=== PATIENT | female | born 1950 | race Caucasian/White ===

== ENCOUNTER 2017-01-01 09:15 | Day surgery (SDC) | payer OTHER ==
[~2017-01-01] VITALS: Ht 165.1 cm; Wt 105.2 kg
[~2017-01-01 09:15] MED LIST: ASPIRIN500 MG PO; CALCIUM 500 MG1 EACH PO; CRANBERRY250 MG PO; FOLIC ACID1 MG PO; LEVOTHYROXINE125 MCG PO; LOSARTAN POTASS50 MG PO; METHOTREXATE2.5 MG PO; PROMETHAZINE HC25 M1 PO; TRAMADOL HCL50 MG PO; VITAMIN D400 UNI1 PO
[2017-01-01] MEDS ORDERED: LASIX20 MG PO (09:34)
== END 2017-01-01 11:10 | disposition home or self-care (01) ==
LOC: PAIN 09:15 → SDC 10:00 → PAIN 11:10
DX: M47.26 Other spondylosis with radiculopathy, lumbar region (principal); M79.7 Fibromyalgia; I10 Essential (primary) hypertension; E03.9 Hypothyroidism, unspecified; Z87.891 Personal history of nicotine dependence; Z79.891 Long term (current) use of opiate analgesic
CPT/HCPCS: J1030; J2250; J2405; J3010; S0020

== ENCOUNTER 2017-01-08 10:17 | Day surgery (SDC) | payer OTHER ==
[~2017-01-08] VITALS: Ht 165.1 cm; Wt 105.2 kg
[~2017-01-08 10:17] MED LIST changes: +LASIX20 MG PO
[2017-01-08] MEDS ORDERED: VITAMIN D31000 UNI2 PO (10:37)
== END 2017-01-08 11:52 | disposition home or self-care (01) ==
LOC: PAIN 10:17 → SDC 11:00 → PAIN 11:52
DX: M47.26 Other spondylosis with radiculopathy, lumbar region (principal); I10 Essential (primary) hypertension; M79.7 Fibromyalgia; Z87.891 Personal history of nicotine dependence; Z79.891 Long term (current) use of opiate analgesic; Z88.0 Allergy status to penicillin; Z86.73 Personal history of transient ischemic attack (TIA), and cerebral infarction without residual deficits
CPT/HCPCS: J1030; J2250; J3010; S0020

== ENCOUNTER 2017-01-24 06:17 | Emergency (ER) | payer OTHER ==
[~2017-01-24] VITALS: Ht 165.1 cm; Wt 100.1 kg
[~2017-01-24 06:17] MED LIST changes: +VITAMIN D31000 UNI2 PO
[2017-01-24] MEDS ORDERED: PERCOCET 5/31 TABLET PO (08:01)
[2017-01-24 09:01] VITALS: BP 164/84
== END 2017-01-24 09:05 | disposition home or self-care (01) ==
LOC: EME → EDBD 06:17 → EME 06:17
DX: S80.02XA Contusion of left knee, initial encounter (principal); M17.12 Unilateral primary osteoarthritis, left knee; F41.9 Anxiety disorder, unspecified; E03.9 Hypothyroidism, unspecified; Z88.0 Allergy status to penicillin; Z88.8 Allergy status to other drugs, medicaments and biological substances; Z87.891 Personal history of nicotine dependence; Z79.82 Long term (current) use of aspirin; I10 Essential (primary) hypertension
CPT/HCPCS: 73564; 99281; 99284

== ENCOUNTER 2017-02-18 09:42 | Day surgery (SDC) | payer OTHER ==
[~2017-02-18] VITALS: Ht 165.1 cm; Wt 104.3 kg
[~2017-02-18 09:42] MED LIST changes: +PERCOCET 5/31 TABLET PO
[2017-02-19] MEDS ORDERED: ACID CONTROL150 MG PO (12:21)
[2017-02-19] MEDS ORDERED: ASPIRIN PO ×2 (12:26)
== END 2017-02-18 11:48 | disposition home or self-care (01) ==
LOC: PAIN 09:42 → SDC 10:30 → PAIN 10:30
DX: M47.816 Spondylosis without myelopathy or radiculopathy, lumbar region (principal); I10 Essential (primary) hypertension; Z87.891 Personal history of nicotine dependence; Z86.73 Personal history of transient ischemic attack (TIA), and cerebral infarction without residual deficits; M19.90 Unspecified osteoarthritis, unspecified site; E03.9 Hypothyroidism, unspecified; Z88.0 Allergy status to penicillin; Z88.1 Allergy status to other antibiotic agents; Z88.5 Allergy status to narcotic agent
CPT/HCPCS: 93005; J1030; J2250; J3010; S0020

== ENCOUNTER 2017-02-25 09:47 | Day surgery (SDC) | payer OTHER ==
[~2017-02-25] VITALS: Ht 165.1 cm; Wt 104.3 kg
[~2017-02-25 09:47] MED LIST changes: +ACID CONTROL150 MG PO; +ASPIRIN PO
== END 2017-02-25 12:05 | disposition home or self-care (01) ==
LOC: PAIN 09:47 → SDC 10:30 → PAIN 10:30
DX: M47.26 Other spondylosis with radiculopathy, lumbar region (principal); M54.5 Low back pain; G89.29 Other chronic pain; M48.061 Spinal stenosis, lumbar region without neurogenic claudication; M79.1 Myalgia; I10 Essential (primary) hypertension; Z87.891 Personal history of nicotine dependence; Z79.891 Long term (current) use of opiate analgesic; Z88.0 Allergy status to penicillin
CPT/HCPCS: J1030; J2250; J3010; S0020

== ENCOUNTER 2017-08-20 21:27 | Emergency (ER) | payer OTHER ==
[~2017-08-20] VITALS: Ht 165.1 cm; Wt 104.8 kg
[2017-08-21 00:26] LABS: HEMATOCRIT 38.1 % (36.0-46.0); HEMOGLOBIN 12.9 G/DL (11.9-15.5); MCH 29.1 PG (29.0-34.0); MCHC 33.9 G/DL (30.0-36.0); PLATELET COUNT 302 K/uL (156-360); RBC DIS.WIDTH-CV 12.5 % (11.8-14.6); RED BLOOD COUNT 4.43 M/uL (3.80-5.20); WHITE BLOOD COUNT 22.4 K/uL (4.1-10.2)
[2017-08-21 00:40] LABS: CHLORIDE 104 mEq/L (99-109); POTASSIUM 3.5 mEq/L (3.7-5.4); SODIUM 139 mEq/L (136-147)
[2017-08-21 00:42] LABS: GLUCOSE 145 mg/dL (70-99)
[2017-08-21 00:45] LABS: CREATININE 0.8 mg/dL (0.6-1.3); GFR ESTIMATE (CALCULATED) > 59 mL/min/
[2017-08-21 00:46] LABS: UREA NITROGEN (BUN) 17 mg/dL (9-23)
[2017-08-21] MEDS ORDERED: ATARAX,VISTARIL50 MG PO (00:48)
[2017-08-21 01:11] VITALS: BP 159/73
[2017-08-22] MEDS ORDERED: ATARAX,VISTARIL25 MG PO (13:49)
[2017-08-22] MEDS ORDERED: CLARITIN10 M3 PO (13:49)
== END 2017-08-21 01:12 | disposition home or self-care (01) ==
LOC: EME 21:27 → EXP 21:27
PROVIDERS: Physician Assistant
DX: L50.9 Urticaria, unspecified (principal); T36.0X5A Adverse effect of penicillins, initial encounter; E03.9 Hypothyroidism, unspecified; G47.30 Sleep apnea, unspecified; M54.9 Dorsalgia, unspecified; G89.29 Other chronic pain; Z79.82 Long term (current) use of aspirin; Z79.891 Long term (current) use of opiate analgesic; Z87.891 Personal history of nicotine dependence; Z90.49 Acquired absence of other specified parts of digestive tract; Z88.5 Allergy status to narcotic agent; Z88.1 Allergy status to other antibiotic agents; Z88.0 Allergy status to penicillin
CPT/HCPCS: 80048; 85027; 99281; 99283; J1200; J2930; J7040; S0028

== ENCOUNTER 2017-08-22 13:01 | Emergency (ER) | payer OTHER ==
[~2017-08-22] VITALS: Ht 165.1 cm; Wt 108.9 kg
[~2017-08-22 13:01] MED LIST changes: +ATARAX,VISTARIL50 MG PO
[2017-08-22] MEDS ORDERED: CLARITIN10 M3 PO (13:49)
[2017-08-22] MEDS ORDERED: ATARAX,VISTARIL25 MG PO (13:49)
[2017-08-22 15:07] VITALS: BP 129/66
== END 2017-08-22 15:16 | disposition home or self-care (01) ==
LOC: EME 13:01
DX: L50.9 Urticaria, unspecified (principal); T36.0X5A Adverse effect of penicillins, initial encounter; I10 Essential (primary) hypertension; E03.9 Hypothyroidism, unspecified; Z79.82 Long term (current) use of aspirin; Z87.891 Personal history of nicotine dependence
CPT/HCPCS: 99281; 99284; J1100; Q0177